=== PATIENT | female | born 1955 | race Caucasian/White ===

== ENCOUNTER 2016-09-27 13:55 | Emergency (ER) | payer OTHER ==
[2016-09-27] MEDS ORDERED: DEXAMETHASONE 4 MG TABLET PO ONE (14:55)
--- NOTE | 2016-09-27 14:59 | ER Document Report ---
HPI - HPI Patient complains to provider of: skin rash Onset: Last week Onset/Duration: Worse Quality of pain: Burning Pain Level: 5 Context: Patient complains of pruritic skin rash to trunk and extremities. Patient saw her lime boiler 2 days ago was diagnosed with scabies and given cream to treat this. Patient states that she has since developed a rash around her ileostomy appliance and is concerned that she may have scabies underneath the appliance and that she cannot put the cream on her abdomen due to and affecting the adhesive capabilities of her ostomy appliance. Patient denies any improvement of pruritus with use of [id number] Benadryl. Patient denies any other new medications or recent illness. Patient states she was working in her yard 4 days ago but is insistent that she did not come in contact with any kind of poison anthony. Associated Symptoms: Other - Skin rash. denies: Fever Exacerbated by: Denies Relieved by: Denies Similar symptoms previously: No Recently seen / treated by doctor: Yes - ROS ROS below otherwise negative: Yes Systems Reviewed and Negative: Yes All other systems reviewed and negative - CONSTITUTIONAL Constitutional: DENIES: Fever, Chills - NEURO Neurology: DENIES: Headache - RESPIRATORY Respiratory: DENIES: Trouble Breathing, Coughing - REPRODUCTIVE Reproductive: DENIES: : - DERM Skin Color: Erythema Skin Problems: Rash Past Medical History - General Information source: Patient - Social History Smoking Status: Never Smoker Frequency of alcohol use: None Drug Abuse: None Occupation: none Family History: Reviewed & Not Pertinent Patient has suicidal ideation: No Patient has homicidal ideation: No - Past Medical History Cardiac Medical History: Denies: Hx Coronary Artery Disease, Hx Heart Attack, Hx Hypertension Pulmonary Medical History: Reports: Hx Pneumonia - in past Denies: Hx Asthma, Hx Bronchitis, Hx COPD Neurological Medical History: Denies: Hx Cerebrovascular Accident, Hx Seizures Renal/ Medical History: Denies: Hx Peritoneal Dialysis Malignancy Medical History: Reports: Hx Breast Cancer - prothesis on left, Hx Colorectal Cancer GI Medical History: Reports: Hx Ulcerative Colitis Musculoskeltal Medical History: Reports Hx Arthritis - knees/l foot Psychiatric Medical History: Reports: Hx Anxiety Past Surgical History: Reports: Hx Breast Surgery - right areola, Hx Genitourinary Surgery - bladder tuck, Hx Hysterectomy, Hx Mastectomy - left breast, Hx Neurologic Surgery, Hx Tubal Ligation, Hx Urinary Tract Surgery - bladder. Denies: Hx Pacemaker - Immunizations Immunizations up to date: Yes Hx Diphtheria, Pertussis, Tetanus Vaccination: No Vertical Provider Document - CONSTITUTIONAL Agree With Documented VS: Yes Exam Limitations: No Limitations General Appearance: WD/WN, No Apparent Distress - INFECTION CONTROL TRAVEL OUTSIDE OF THE [place] IN LAST 30 DAYS: No - HEENT HEENT: Atraumatic, Normocephalic - NECK Neck: Normal Inspection - RESPIRATORY Respiratory: Breath Sounds Normal, No Respiratory Distress O2 Sat by Pulse Oximetry: 97 - CARDIOVASCULAR Cardiovascular: Regular Rate, Regular Rhythm - GI/ABDOMEN Gastrointestinal: Abdomen Soft - MUSCULOSKELETAL/EXTREMETIES Musculoskeletal/Extremeties: MAEW - NEURO Level of Consciousness: Awake, Alert, Appropriate Motor/Sensory: No Motor Deficit - DERM Integumentary: Warm, Dry, Rash - Erythematous maculopapular rash confluent areas to trunk with scattered areas with a vesicular type appearance concerning for a contact dermatitis. Course - Re-evaluation Re-evalutation: 09/27/16 14:[address] Emerson, Dr Emerson to bedside for examination. Recommends giving patient a dose of Decadron and a prescription for Atarax to help with her itching symptoms. Advises follow-up with dermatology on Thursday for recheck. - Vital Signs Vital signs: Temp Pulse Resp BP Pulse Ox 98.7 F 89 20 134/83 H 97 09/27/16 14:00 09/27/16 14:00 09/27/16 14:00 09/27/16 14:00 09/27/16 14:00 Discharge - Discharge Clinical Impression: Skin rash Condition: Stable Disposition: HOME, SELF-CARE Instructions: Contact Dermatitis ([facility]), Steroid Medication Additional Instructions: Return immediately for any new or worsening symptoms Followup with your primary care provider, call tomorrow to make a followup appointment Follow up with your lime boiler on Thursday for recheck Do not take Benadryl,if you are taking Atarax, as these are similar category of medication. Prescriptions: Hydroxyzine HCl [Atarax 25 mg Tablet] 1 tab PO QID PRN #20 tablet PRN Reason: Referrals: VANESSA WEIR PA [NO LOCAL MD] - 09/29/16
[2016-09-27 20:45] VITALS: BP 112/81
== END 2016-09-27 19:19 | disposition home or self-care (01) ==
LOC: ER 13:55
DX: R21 Rash and other nonspecific skin eruption (principal)
CPT/HCPCS: 99282

== ENCOUNTER → 2016-10-21 | Outpatient (CLI) | payer OTHER ==
--- NOTE | 2016-10-21 15:59 | RADIOLOGY REPORT (SQ) ---
EXAM DESCRIPTION: MRI HEAD COMBO COMPLETED DATE/TIME: 10/21/2016 3:40 pm REASON FOR STUDY: HEADACHE (R51), DIZZINESS AND GIDDINESS (R42), BREAST CA (C50.912) R51 HEADACHE R 42 DIZZINESS AND GIDDINESS C50.912 MALIGNANT NEOPLASM OF UNSPECIFIED SITE OF LEFT FEMAL COMPARISON: None. TECHNIQUE: Multiplanar imaging includes noncontrasted T1, T2, FLAIR, diffusion with ADC map and post gadolinium contrast T1 sequences. Images stored on PACS. CONTRAST TYPE AND DOSE: 20 mL Multihance. RENAL FUNCTION: GFR > 60. LIMITATIONS: None. FINDINGS: CSF SPACES and CEREBRUM: Patient is post right temporal craniotomy. In the right middle cranial fossa, the choroidal fissure region arachnoid cyst is present measuring 4 .2 cm transverse by 3.3 cm craniocaudad by 5.4 cm AP. There is minimal gliosis on FLAIR images along the posterior edge of this cyst. No contrast enhancement or septations. There is right anterior te mporal lobe atrophy. No mass effect or midline shift. POSTERIOR FOSSA: No signal alteration. No hemorrhage. No edema, masses, or mass effect. Internal mina tory canals, cerebellopontine angles, mastoids normal. No enhancing lesions. No abnormal enhancement post contrast. DIFFUSION IMAGING: Negative for acute or subacute infarction. ORBITS: No masses. Globes normal. PARANASAL SINUSES: There is mucous membrane thickening and fluid in the dependent portion of the sphe noid sinus. Circumferential mucous membrane thickening with minimal fluid left maxillary sinus. OTHER: No other significant finding. IMPRESSION: Old right temporal craniotomy with right-sided choroidal fissure arachnoid cyst. Minima l temporal lobe gliosis along the posterior edge of this cyst. No abnormal brain parenchymal enhance ment, hemorrhage, or midline shift. No MR evidence of acute ischemic change Left maxillary and left sphenoid sinusitis TECHNICAL DOCUMENTATION: JOB ID: [id number] [employer]- All Rights Reserved
== END ==
LOC: RAD 13:34
PROVIDERS: ATTEND Internal Medicine Medical Oncology
DX: R51 Headache (principal); R42 Dizziness and giddiness; C50.912 Malignant neoplasm of unspecified site of left female breast; J32.0 Chronic maxillary sinusitis
CPT/HCPCS: 82565; 70553; A9577

== ENCOUNTER 2016-12-01 19:41 | Emergency (ER) | payer OTHER ==
[2016-12-01 19:55] VITALS: BP 148/101
--- NOTE | 2016-12-01 21:57 | ER Document Report ---
ED ENT - General Chief Complaint: Sore Throat Stated Complaint: SORE THROAT/NOSE BURNING Time Seen by Provider: 12/01/16 21:40 TRAVEL OUTSIDE OF THE [place]. IN LAST 30 DAYS: No - Related Data Allergies/Adverse Reactions: carbamazepine [From Tegretol] Allergy (Mild, Verified 09/27/16 13:59) Generalized Itching Penicillins Allergy (Mild, Verified 09/27/16 13:59) Generalized Itching Past Medical History - Social History Family History: Reviewed & Not Pertinent Patient has suicidal ideation: No Patient has homicidal ideation: No - Past Medical History Cardiac Medical History: Denies: Hx Coronary Artery Disease, Hx Heart Attack, Hx Hypertension Pulmonary Medical History: Reports: Hx Pneumonia - in past Denies: Hx Asthma, Hx Bronchitis, Hx COPD Neurological Medical History: Denies: Hx Cerebrovascular Accident, Hx Seizures Renal/ Medical History: Denies: Hx Peritoneal Dialysis Malignancy Medical History: Reports: Hx Breast Cancer - prothesis on left, Hx Colorectal Cancer GI Medical History: Reports: Hx Ulcerative Colitis Musculoskeltal Medical History: Reports Hx Arthritis - knees/l foot Psychiatric Medical History: Reports: Hx Anxiety Past Surgical History: Reports: Hx Breast Surgery - right areola, Hx Genitourinary Surgery - bladder tuck, Hx Hysterectomy, Hx Mastectomy - left breast, Hx Neurologic Surgery, Hx Tubal Ligation, Hx Urinary Tract Surgery - bladder. Denies: Hx Pacemaker - Immunizations Immunizations up to date: Yes Hx Diphtheria, Pertussis, Tetanus Vaccination: No Physical Exam - Vital signs Vitals: Temp Pulse Resp BP Pulse Ox 98.1 F 109 H 18 148/101 H 95 12/01/16 19:52 12/01/16 19:52 12/01/16 19:52 12/01/16 19:52 12/01/16 19:52 Course - Vital Signs Vital signs: Temp Pulse Resp BP Pulse Ox 98.1 F 109 H 18 148/101 H 95 12/01/16 19:52 12/01/16 19:52 12/01/16 19:52 12/01/16 19:52 12/01/16 19:52 Discharge - Discharge Clinical Impression: URI (upper respiratory infection) Condition: Stable Disposition: HOME, SELF-CARE Instructions: Family Physicians / Practices, Hay Fever ([facility]), Sinusitis ([facility]) Prescriptions: Azithromycin [Zithromax 250 mg Tablet] 250 mg PO ASDIR PRN #6 tablet PRN Reason: Methylprednisolone [Medrol Dosepack (4 mg/Tab) 21 Tab/Dosepak] 4 mg PO ASDIR PRN #21 tab.ds.pk PRN Reason:
--- NOTE | 2016-12-01 22:50 | ER Document Report ---
ED ENT - General Mode of Arrival: Ambulatory Information source: Patient TRAVEL OUTSIDE OF THE [place] IN LAST 30 DAYS: No <DARYA RAMOS - Last Filed: 12/02/16 00:52> <GARLAND CONRAD - Last Filed: 12/02/16 01:07> - General Chief Complaint: Sore Throat Stated Complaint: SORE THROAT/NOSE BURNING Time Seen by Provider: 12/01/16 21:40 Notes: Patient is a 61-year-old female that presents to the emergency department today with various complaints including ear pain, throat pain, a cough, and nose "burning". Patient states 2-3 weeks ago she was diagnosed with a sinus infection and has had these symptoms pretty consistently since that time. Patient states she has tried Benadryl, saltwater gargles, and nasal rinses with minimal relief. (DARYA RAMOS) - Related Data Allergies/Adverse Reactions: carbamazepine [From Tegretol] Allergy (Mild, Verified 12/01/16 21:57) Generalized Itching Penicillins Allergy (Mild, Verified 12/01/16 21:57) Generalized Itching Past Medical History - General Information source: Patient - Social History Smoking Status: Unknown if Ever Smoked Frequency of alcohol use: None Drug Abuse: None Lives with: Family Family History: Reviewed & Not Pertinent Patient has suicidal ideation: No Patient has homicidal ideation: No Pulmonary Medical History: Reports: Hx Pneumonia - in past Malignancy Medical History: Reports: Hx Breast Cancer - prothesis on left, Hx Colorectal Cancer GI Medical History: Reports: Hx Ulcerative Colitis Musculoskeltal Medical History: Reports Hx Arthritis - knees/l foot Psychiatric Medical History: Reports: Hx Anxiety Past Surgical History: Reports: Hx Breast Surgery - right areola, Hx Genitourinary Surgery - bladder tuck, Hx Hysterectomy, Hx Mastectomy - left breast, Hx Neurologic Surgery, Hx Tubal Ligation, Hx Urinary Tract Surgery - bladder. Denies: Hx Pacemaker - Immunizations Immunizations up to date: Yes Hx Diphtheria, Pertussis, Tetanus Vaccination: No <DARYA RAMOS - Last Filed: 12/02/16 00:52> Review of Systems - Review of Systems Constitutional: No symptoms reported EENT: See HPI, Ear pain, Throat pain, Other - nose burning Cardiovascular: No symptoms reported Respiratory: See HPI, Cough Gastrointestinal: No symptoms reported Genitourinary: No symptoms reported Female Genitourinary: No symptoms reported Musculoskeletal: No symptoms reported Skin: No symptoms reported Hematologic/Lymphatic: No symptoms reported Neurological/Psychological: No symptoms reported -: Yes All other systems reviewed and negative <DARYA RAMOS - Last Filed: 12/02/16 00:52> Physical Exam - Vital signs Interpretation: Normal - General General appearance: Appears well, Alert - HEENT Head: Normocephalic, Atraumatic Eyes: Normal Pupils: PERRL - Respiratory Respiratory status: No respiratory distress Chest status: Nontender Breath sounds: Normal Chest palpation: Normal - Cardiovascular Rhythm: Regular Heart sounds: Normal auscultation Murmur: No - Abdominal Inspection: Normal Distension: No distension Bowel sounds: Normal Tenderness: Nontender Organomegaly: No organomegaly - Back Back: Normal, Nontender - Extremities General upper extremity: Normal inspection, Nontender, Normal color, Normal ROM , Normal temperature General lower extremity: Normal inspection, Nontender, Normal color, Normal ROM , Normal temperature, Normal weight bearing. No: Zuly's sign - Neurological Neuro grossly intact: Yes Cognition: Normal Orientation: AAOx4 Tracie Coma Scale Eye Opening: Spontaneous Gillespie Coma Scale Verbal: Oriented Gillespie Coma Scale Motor: Obeys Commands Tracie Coma Scale Total: 15 Speech: Normal Motor strength normal: LUE, RUE, LLE, RLE Sensory: Normal - Psychological Associated symptoms: Normal affect, Normal mood - Skin Skin Temperature: Warm Skin Moisture: Dry Skin Color: Normal <GARLAND CONRAD - Last Filed: 12/02/16 01:07> - Vital signs Vitals: Temp Pulse Resp BP Pulse Ox 98.1 F 109 H 18 148/101 H 95 12/01/16 19:52 12/01/16 19:52 12/01/16 19:52 12/01/16 19:52 12/01/16 19:52 Course <DARYA RAMOS - Last Filed: 12/02/16 00:52> <GARLAND CONRAD Last Filed: 12/02/16 01:07> - Re-evaluation Re-evalutation: Patient appears well. Patient is complaining of upper respiratory symptoms versus rhinitis. Patient will be given steroids and antibiotics as requested. She is to follow-up with a primary doctor. Stable for discharge. (GARLAND CONRAD) - Vital Signs Vital signs: Temp Pulse Resp BP Pulse Ox 98.1 F 109 H 18 148/101 H 95 12/01/16 19:52 12/01/16 19:52 12/01/16 19:52 12/01/16 19:52 12/01/16 19:52 Discharge <DARYA RAMOS - Last Filed: 12/02/16 00:52> <GARLAND CONRAD - Last Filed: 12/02/16 01:07> - Discharge Clinical Impression: URI (upper respiratory infection) Qualifiers: URI type: unspecified URI Qualified Code(s): J06.9 - Acute upper respiratory infection, unspecified Condition: Stable Disposition: HOME, SELF-CARE Instructions: Family Physicians / Practices, Hay Fever ([facility]), Sinusitis ([facility]) Prescriptions: Azithromycin [Zithromax 250 mg Tablet] 250 mg PO ASDIR PRN #6 tablet PRN Reason: Methylprednisolone [Medrol Dosepack (4 mg/Tab) 21 Tab/Dosepak] 4 mg PO ASDIR PRN #21 tab.ds.pk PRN Reason: Scribe Attestation: 12/02/16 01:06 I personally performed the services described in the documentation, reviewed and edited the documentation which was dictated to the scribe in my presence, and it accurately records my words and actions. (GARLAND CONRAD) Scribe Documentation - Scribe Written by Elia:: Elia Pandya, 12/02/2016 0055 acting as scribe for :: Omar <DARYA RAMOS - Last Filed: 12/02/16 00:52>
== END 2016-12-01 21:59 | disposition home or self-care (01) ==
LOC: ER 19:41
DX: J06.9 Acute upper respiratory infection, unspecified (principal); Z90.710 Acquired absence of both cervix and uterus; Z90.12 Acquired absence of left breast and nipple; Z88.0 Allergy status to penicillin
CPT/HCPCS: 99282

== ENCOUNTER 2018-02-23 19:56 | Emergency (ER) | payer OTHER ==
[2018-02-23] MEDS ORDERED: ACETAMINOPHEN 325 MG TABLET PO ONE (22:09)
--- NOTE | 2018-02-23 22:40 | RADIOLOGY REPORT (SQ) ---
EXAM DESCRIPTION: XR FOOT 3 OR MORE VIEWS BILATERAL COMPLETED DATE/TME: 02/23/2018 00:00 CLINICAL HISTORY: 62 years Female, Foot pain s/p injury. Tripped over debris in house COMPARISON: 4.3.15 Findings: Mild primary osteoarthritis includes the first metatarsophalangeal joint bilaterally, plantar fascial enthesophyte, moderate osteoarthritis of the midfoot, small soft tissue bunionette bilaterally.. Bones, joints, and soft tissues of the bilateral XR FOOT 3 VIEWS BILATERAL appear otherwise intact. IMPRESSION: No acute findings.
[2018-02-23] MEDS ORDERED: HYDROCODONE/ACETAMINOPHEN 5-325 MG (6 TAB/ER DISP) PO PRN (22:45)
--- NOTE | 2018-02-23 22:48 | ER Document Report ---
HPI - HPI Patient complains to provider of: Bilateral foot pain Onset: This evening Onset/Duration: Sudden Quality of pain: Achy Pain Level: 5 Context: Patient states that she was cleaning up her house and tripped over a fan injuring her bilateral feet. Patient complains of bilateral foot pain. Associated Symptoms: Other - Bilateral foot pain Exacerbated by: Standing, Movement, Walking Relieved by: Denies Similar symptoms previously: No Recently seen / treated by doctor: No - ROS ROS below otherwise negative: Yes Systems Reviewed and Negative: Yes All other systems reviewed and negative - CONSTITUTIONAL Constitutional: DENIES: Fever - NEURO Neurology: DENIES: Headache, Weakness - GASTROINTESTINAL Gastrointestinal: DENIES: Nausea - REPRODUCTIVE Reproductive: DENIES: : - MUSCULOSKELETAL Musculoskeletal: REPORTS: Extremity pain - DERM Skin Color: Normal Skin Problems: None Past Medical History - General Information source: Patient - Social History Smoking Status: Never Smoker Frequency of alcohol use: None Drug Abuse: None Family History: Reviewed & Not Pertinent - Past Medical History Cardiac Medical History: Denies: Hx Coronary Artery Disease, Hx Heart Attack, Hx Hypertension Pulmonary Medical History: Reports: Hx Pneumonia - in past Denies: Hx Asthma, Hx Bronchitis, Hx COPD Neurological Medical History: Reports: Hx Seizures. Denies: Hx Cerebrovascular Accident Renal/ Medical History: Denies: Hx Peritoneal Dialysis Malignancy Medical History: Reports: Hx Breast Cancer - prothesis on left, Hx Colorectal Cancer GI Medical History: Reports: Hx Ulcerative Colitis Musculoskeletal Medical History: Reports Hx Arthritis - knees/l foot Psychiatric Medical History: Reports: Hx Anxiety Past Surgical History: Reports: Hx Breast Surgery - right areola, Hx Genitourinary Surgery - bladder tuck, Hx Hysterectomy, Hx Mastectomy - left breast, Hx Neurologic Surgery, Hx Tubal Ligation, Hx Urinary Tract Surgery - bladder. Denies: Hx Pacemaker - Immunizations Immunizations up to date: Yes Hx Diphtheria, Pertussis, Tetanus Vaccination: No Vertical Provider Document - CONSTITUTIONAL Agree With Documented VS: Yes Exam Limitations: No Limitations General Appearance: WD/WN, No Apparent Distress - INFECTION CONTROL TRAVEL OUTSIDE OF THE [place] IN LAST 30 DAYS: No - HEENT HEENT: Atraumatic, Normocephalic - NECK Neck: Normal Inspection - RESPIRATORY Respiratory: Breath Sounds Normal, No Respiratory Distress - CARDIOVASCULAR Cardiovascular: Regular Rate, Regular Rhythm Pulses: Normal: Dorsalis pedis - MUSCULOSKELETAL/EXTREMETIES Musculoskeletal/Extremeties: MAEW, FROM, Tender - Patient with bilateral foot tenderness, right worse than left. Notes: Right foot tenderness over midfoot area with 1+ edema, no ecchymosis. Dermal skin color and temperature. Left foot tenderness to distal first through third metatarsal and first through third toes. No ecchymosis edema or deformity. - NEURO Level of Consciousness: Awake, Alert, Appropriate Motor/Sensory: No Motor Deficit - DERM Integumentary: Warm, Dry, No Rash Course - Re-evaluation Re-evalutation: 02/23/18 22:47 X-ray report reviewed, no concern for fracture. Patient with arthritic findings to bilateral feet. - Vital Signs Vital signs: Temp Pulse Resp BP Pulse Ox 98.6 F 79 16 139/87 H 97 02/23/18 20:07 02/23/18 20:07 02/23/18 20:07 02/23/18 20:07 02/23/18 20:07 Procedures - Immobilization Left Foot Pre-Proc Neuro Vasc Exam: Normal Immobilizer type: Post-op shoe Performed by: PCT Post-Proc Neuro Vasc Exam: Normal Alignment checked and good: Yes Right Foot Pre-Proc Neuro Vasc Exam: Normal Immobilizer type: Post-op shoe Performed by: PCT Post-Proc Neuro Vasc Exam: Normal Alignment checked and good: Yes Discharge - Discharge Clinical Impression: Arthritis Foot sprain Qualifiers: Encounter type: initial encounter Laterality: unspecified laterality Qualified Code(s): S93.609A - Unspecified sprain of unspecified foot, initial encounter Condition: Stable Disposition: HOME, SELF-CARE Instructions: Arthritis ([facility]), Post-Op Shoe ([facility]), Sprain ([facility]) Additional Instructions: Return immediately for any new or worsening symptoms Followup with your primary care provider, call tomorrow to make a followup appointment Follow-up with orthopedics for any persistent pain or problems, call for follow- up Prescriptions: Naproxen [Naprosyn 250 Nmg Tablet] 1 tab PO BID #14 tablet Referrals: [facility]LE[facility] FOR SURGERY ([facility]) [Provider Group] - Follow up as needed
[2018-02-23 23:01] VITALS: BP 140/82
[2018-02-23] MEDS ORDERED: HYDROCODONE/ACETAMINOPHEN 5-325 MG (6 TAB/ER DISP) ONE (23:30)
== END 2018-02-23 22:58 | disposition home or self-care (01) ==
LOC: ER 19:56
DX: S93.609A Unspecified sprain of unspecified foot, initial encounter (principal); X58.XXXA Exposure to other specified factors, initial encounter; Y93.E9 Activity, other interior property and clothing maintenance; Y92.009 Unspecified place in unspecified non-institutional (private) residence as the place of occurrence of the external cause; M19.072 Primary osteoarthritis, left ankle and foot; M19.071 Primary osteoarthritis, right ankle and foot; M79.671 Pain in right foot; M79.672 Pain in left foot; R60.0 Localized edema; Z85.3 Personal history of malignant neoplasm of breast; Z85.048 Personal history of other malignant neoplasm of rectum, rectosigmoid junction, and anus
CPT/HCPCS: 99283

== ENCOUNTER → 2018-05-23 | Outpatient (CLI) | payer OTHER ==
--- NOTE | 2018-05-24 14:56 | RADIOLOGY REPORT (SQ) ---
EXAM DESCRIPTION: PET CT SKULL/THIGH COMPLETED DATE/TIME: 05/23/2018 8:10 pm REASON FOR STUDY: BREAST CANCER C50.919 MALIGNANT NEOPLASM OF UNSP SITE OF UNSPECIFIED FEMAL Colon cancer COMPARISON: None. RADIONUCLIDE AND DOSE: 9 mCi F18 FDG The route of agent administration: Intravenous FASTING BLOOD SUGAR: 93 mg/dl CONTRAST TYPE AND DOSE: No CT contrast given. TECHNIQUE: Blood glucose level was verified. Above dose of FDG was injected intravenously. 2-D seg mented attenuation correction images were obtained from the base of the skull to the midthighs. Nonc ontrast CT images were obtained for attenuation correction and fusion with emission images. CT image s were performed without oral or intravenous contrast and are not sensitive for parenchymal lesions. A series of overlapping emission PET images were obtained. Images reviewed and manipulated at [facility] work station by the radiologist. Images stored on PACS. LIMITATIONS: None. FINDINGS: HEAD AND NECK: No areas of abnormal metabolic activity in the soft tissues of the head and neck. CHEST: No areas of abnormal metabolic activity in the chest. ABDOMEN AND PELVIS: No areas of abnormal metabolic activity in the abdomen or pelvis. Expected physi ologic activity is present in the genitourinary system and bowel. PROXIMAL LOWER EXTREMITIES: No areas of abnormal metabolic activity in the soft tissues of the lower extremities. BONES: No abnormal metabolic activity in the visualized skeleton. ADDITIONAL CT FINDINGS: Right arm central line tip superior vena cava. Post bilateral mastectomy wit h right breast reconstruction without implant. Total colectomy with right lower quadrant ileostomy. Post appendectomy and hysterectomy. OTHER: Liver background activity 2.9 SUV. Blood pool background activity 1.9 SUV IMPRESSION: No hypermetabolic lesions over the skullbase neck chest abdomen or pelvis worrisome for metastatic disease, given history of breast cancer and colon cancer. TECHNICAL DOCUMENTATION: JOB ID: [id number] [employer]- All Rights Reserved Reading location - IP/workstation name: [email or web address]
== END ==
LOC: RAD 16:48
PROVIDERS: ATTEND Internal Medicine Medical Oncology
DX: C50.919 Malignant neoplasm of unspecified site of unspecified female breast (principal); C18.2 Malignant neoplasm of ascending colon
CPT/HCPCS: 78815; A9552

== ENCOUNTER 2018-12-29 09:43 | Day surgery (SDC) | payer OTHER ==
[2018-12-29] MEDS ORDERED: LIDOCAINE 2% INJ-PF (100 MG/5 ML) SYRINGE ONE (12:28)
[2018-12-29] MEDS ORDERED: PROPOFOL INJ 200 MG/20 ML VIAL IV ONE (12:29)
[2018-12-29] MEDS ORDERED: PROMETHAZINE HCL INJ 25 MG/1 ML VIAL IV PRN ×2 (13:12)
[2018-12-29] MEDS ORDERED: FENTANYL CITRATE INJ/PF 100 MCG/2 ML AMPUL IV PRN ×3 (13:12)
[2018-12-29 14:22] VITALS: BP 135/97
--- NOTE | 2018-12-29 14:32 | Operative Report ---
Operative Report DATE OF SURGERY: 12/29/18 Operative Report: The risks benefits alternatives are explained to the patient in detail she is taken back to the OR and Propofol is administered. The scope is inserted into the patient's mouth and hypopharynx the esophagus is intubated the esophagus , stomach and duodenum are examined PREOPERATIVE DIAGNOSIS: epigastric pain POSTOPERATIVE DIAGNOSIS: gastritis s/p biopsy OPERATION: EGD with biopsy SURGEON: IRVIN MELCHOR ANESTHESIA: LMAC TISSUE REMOVED OR ALTERED: as noted COMPLICATIONS: none ESTIMATED BLOOD LOSS: none INTRAOPERATIVE FINDINGS: as noted above PROCEDURE: patient tolerated procedure well no post procedure complications patient is discharged in good condition discharge date: 12/29/18 discharge diet and activity are normal follow up on biopsy patient to go to ED if any concerns
== END 2018-12-29 14:20 | disposition home or self-care (01) ==
LOC: OROUT 09:43
PROVIDERS: ATTEND Internal Medicine Gastroenterology
DX: K29.50 Unspecified chronic gastritis without bleeding (principal); I10 Essential (primary) hypertension; Z85.3 Personal history of malignant neoplasm of breast; K21.9 Gastro-esophageal reflux disease without esophagitis; Z85.038 Personal history of other malignant neoplasm of large intestine; Z90.49 Acquired absence of other specified parts of digestive tract; Z80.0 Family history of malignant neoplasm of digestive organs
CPT/HCPCS: 43239; 88305 ×2; 00731; J2001; J2704; 731

== ENCOUNTER 2019-03-30 16:24 | Observation (INO) | payer OTHER ==
[2019-03-30] MEDS ORDERED: IBUPROFEN 800 MG TABLET PO ONE (16:34)
--- NOTE | 2019-03-30 16:37 | ER Document Report ---
ED Medical Screen (RME) - General Chief Complaint: Jaw Pain Stated Complaint: HEADACHE Time Seen by Provider: 03/30/19 16:29 Primary Care Provider: ARMAND HANSEN MD [Primary Care Provider] - Follow up as needed Mode of Arrival: Ambulatory Information source: Patient Notes: This 63-year-old female with history of cancers breast uterine colon, panic attacks, presents to the emergency department with a right sided jaw pain that started today. Patient denies nausea vomiting has a colonoscopy and this denies diarrhea. Denies chest pain reports she is always short of breath. Reports she had a normal EKG in the summer. Has not taken anything for the jaw pain. Denies dental pain. Reports she sees a dentist on a regular basis. I have greeted and performed a rapid initial assessment of this patient. A comprehensive ED assessment and evaluation of the patient, analysis of test results and completion of the medical decision making process will be conducted by additional ED providers. Dictation of this chart was performed using voice recognition software; therefore, there may be some unintended grammatical errors. TRAVEL OUTSIDE OF THE [place] IN LAST 30 DAYS: No - Related Data Allergies/Adverse Reactions: carbamazepine [From Tegretol] Allergy (Mild, Verified 12/01/16 21:57) Generalized Itching Penicillins Allergy (Mild, Verified 12/01/16 21:57) Generalized Itching Past Medical History - Past Medical History Cardiac Medical History: Denies: Hx Coronary Artery Disease, Hx Heart Attack, Hx Hypertension Pulmonary Medical History: Reports: Hx Pneumonia - in past Denies: Hx Asthma, Hx Bronchitis, Hx COPD Neurological Medical History: Reports: Hx Seizures - NONE SINCE 1995 . Denies: Hx Cerebrovascular Accident Renal/ Medical History: Denies: Hx Peritoneal Dialysis Malignancy Medical History: Reports: Hx Breast Cancer - prothesis on left, Hx Colorectal Cancer GI Medical History: Reports: Hx Ulcerative Colitis Musculoskeltal Medical History: Reports Hx Arthritis - knees/l foot Psychiatric Medical History: Reports: Hx Anxiety Past Surgical History: Reports: Hx Breast Surgery - right areola, Hx Genitourinary Surgery - bladder tuck, Hx Hysterectomy, Hx Mastectomy - left breast, Hx Neurologic Surgery, Hx Tubal Ligation, Hx Urinary Tract Surgery - bladder. Denies: Hx Pacemaker - Immunizations Immunizations up to date: Yes Hx Diphtheria, Pertussis, Tetanus Vaccination: No Physical Exam - Vital signs Vitals: Temp Pulse Resp BP Pulse Ox 98.0 F 93 20 151/94 H 99 03/30/19 16:28 03/30/19 16:28 03/30/19 16:28 03/30/19 16:28 03/30/19 16:28 Course - Vital Signs Vital signs: Temp Pulse Resp BP Pulse Ox 98.0 F 93 20 151/94 H 99 03/30/19 16:28 03/30/19 16:28 03/30/19 16:28 03/30/19 16:28 03/30/19 16:28 Doctor's Discharge - Discharge Referrals: ARMAND HANSEN MD [Primary Care Provider] - Follow up as needed
[2019-03-30 17:31] LABS: ABSOLUTE BASOPHILS # (AUTO) 0.1 10^3/uL (0.0-0.2); ABSOLUTE LYMPHOCYTES (AUTO) 1.8 10^3/uL (0.5-4.7); ABSOLUTE MONOCYTES (AUTO) 0.7 10^3/uL (0.1-1.4); ABSOLUTE NEUT (AUTO) 5.6 10^3/uL (1.7-8.2); BASOPHILS % (AUTO) 1.3 % (0-2); EOSINOPHILS % (AUTO) 0.4 % (0-6); HEMOGLOBIN 15.1 g/dL (12.0-15.5); LYMPHOCYTES % (AUTO) 21.5 % (13-45); MEAN CORPUSCULAR HEMOGLOBIN 29.8 pg (27.0-33.4); MEAN CORPUSCULAR HGB CONC 34.2 g/dL (32.0-36.0); MEAN CORPUSCULAR VOLUME 87 fl (80-97); PLATELET COUNT 264 10^3/uL (150-450); RED BLOOD COUNT 5.05 10^6/uL (3.72-5.28); RED CELL DISTRIBUTION WIDTH 12.5 % (11.5-14.0); SEGMENTED NEUTROPHILS % (AUTO) 67.8 % (42-78); TOTAL CELLS COUNTED % (AUTO) 100 %; WHITE BLOOD COUNT 8.3 10^3/uL (4.0-10.5)
[2019-03-30 17:40] LABS: ALBUMIN 4.7 g/dL (3.5-5.0); ALKALINE PHOSPHATASE 94 U/L (38-126); ANION GAP 13 (5-19); ASPARTATE AMINO TRANSFERASE 22 U/L (14-36); BILIRUBIN,DIRECT 0.1 mg/dL (0.0-0.4); BILIRUBIN,TOTAL 0.6 mg/dL (0.2-1.3); BLOOD UREA NITROGEN 14 mg/dL (7-20); CALCIUM 10.2 mg/dL (8.4-10.2); CARBON DIOXIDE 22 mmol/L (22-30); CHLORIDE 105 mmol/L (98-107); GLUCOSE 101 mg/dL (75-110); POTASSIUM 4.1 mmol/L (3.6-5.0); TOTAL PROTEIN 8.3 g/dL (6.3-8.2)
--- NOTE | 2019-03-30 19:19 | ER Document Report ---
ED General - General Chief Complaint: Jaw Pain Stated Complaint: HEADACHE Time Seen by Provider: 03/30/19 16:29 Primary Care Provider: ARMAND HANSEN MD [Primary Care Provider] - Follow up as needed Mode of Arrival: Ambulatory TRAVEL OUTSIDE OF THE [place] IN LAST 30 DAYS: No - HPI Notes: Patient is a 63-year-old female with history of seizures, ulcerative colitis, breast cancer status post mastectomy, colon cancer s/p ileostomy, brain cancer status post right temporal lobectomy more than 4 years ago and currently in remission who presents complaining of having right-sided jaw pain and tightness that has been intermittent beginning this afternoon. Patient states that the last for a few minutes approximately a time. Pt states that she is unaware of anything that improves or worsens her symptoms. She has been having occasional SOB with exertion for several months otherwise. No h/o PA, CAD, CVA, TIA, DM. Denies any headache, red eye, fever, injury, neck pain, changes in vision/speech/mentation/hearing, URI, sore throat, chest pain, palpitations, syncope, cough, wheeze, abdominal pain, nausea/vomiting/diarrhea, urinary retention, dysuria, hematuria, loss of control of bowel or bladder, numbness/tingling, saddle anesthesia, muscle paralysis/weakness, or rash. - Related Data Allergies/Adverse Reactions: carbamazepine [From Tegretol] Allergy (Mild, Verified 12/01/16 21:57) Generalized Itching Penicillins Allergy (Mild, Verified 12/01/16 21:57) Generalized Itching Home Medications: zoloft. melatonin. benadryl Past Medical History - General Information source: Patient - Social History Smoking Status: Never Smoker Chew tobacco use (# tins/day): No Frequency of alcohol use: None Drug Abuse: None Family History: Reviewed & Not Pertinent Patient has suicidal ideation: No Patient has homicidal ideation: No - Past Medical History Cardiac Medical History: Denies: Hx Coronary Artery Disease, Hx Heart Attack, Hx Hypertension Pulmonary Medical History: Reports: Hx Pneumonia - in past Denies: Hx Asthma, Hx Bronchitis, Hx COPD Neurological Medical History: Reports: Hx Seizures - NONE SINCE 1995 . Denies: Hx Cerebrovascular Accident Renal/ Medical History: Denies: Hx Peritoneal Dialysis Malignancy Medical History: Reports: Hx Breast Cancer - prothesis on left, Hx C olorectal Cancer GI Medical History: Reports: Hx Ulcerative Colitis Musculoskeletal Medical History: Reports Hx Arthritis - knees/l foot Psychiatric Medical History: Reports: Hx Anxiety Past Surgical History: Reports: Hx Breast Surgery - right areola, Hx Genitourinary Surgery - bladder tuck, Hx Hysterectomy, Hx Mastectomy - left breast, Hx Neurologic Surgery, Hx Tubal Ligation, Hx Urinary Tract Surgery - bladder. Denies: Hx Pacemaker - Immunizations Immunizations up to date: Yes Hx Diphtheria, Pertussis, Tetanus Vaccination: No Review of Systems - Review of Systems -: Yes All other systems reviewed and negative Physical Exam - Vital signs Vitals: Temp Pulse Resp BP Pulse Ox 98.0 F 93 20 151/94 H 99 03/30/19 16:28 03/30/19 16:28 03/30/19 16:28 03/30/19 16:28 03/30/19 16:28 - Notes Notes: PHYSICAL EXAMINATION: GENERAL: Well-appearing, well-nourished and in no acute distress. A&Ox4. Answers questions appropriately. HEAD: Atraumatic, normocephalic. Non-tender. EYES: Pupils equal round and reactive to light, extraocular movements intact, sclera anicteric, conjunctiva are normal. No nystagmus. vis lopez intact. ENT: EAC clear b/l. TM's intact b/l without erythema, fluid, or perforation. Nares patent and without discharge. oropharynx clear without exudates. No tonsilar hypertrophy or erythema. Moist mucous membranes. Mouth: no dental tenderness. No swelling or abscess. No bony tenderness to the jaw. No tongue protrusion. NECK: Normal range of motion, supple without lymphadenopathy. No rigidi ty/meningismus. No midline tenderness. LUNGS: Breath sounds clear to auscultation bilaterally and equal. No wheezes rales or rhonchi. HEART: Regular rate and rhythm without murmurs, rubs, gallops. ABDOMEN: Soft, nontender, nondistended abdomen. No guarding, no rebound. Normal bowel sounds present. No CVA tenderness bilaterally. Musculoskeletal: Ext b/l: FROM to passive/active. Strength 5+/5. No deficits noted. No bony tenderness of extremities. Extremities: No cyanosis, clubbing, or edema b/l. Peripheral pulses 2+. Capillary refill less than 2 seconds. NEUROLOGICAL: NIH 0. GCS 15. Cranial nerves grossly intact. Normal speech, normal gait. Normal sensory, motor exams. Reflexes 2+ b/l. ABILIO's negative. Pronator drift negative. Heel/gibbons, finger/nose wnl. PSYCH: Normal mood, normal affect. SKIN: Warm, Dry, normal turgor, no rashes or lesions noted. Course - Re-evaluation Re-evalutation: 03/30/19 19:[address] Rodriguez who recommends CP obs/rule out. Patient is an afebrile, well-hydrated, 63-year-old female who presents with nonspecific intermittent right jaw pain. Vitals are currently acceptable without significant tachycardia, tachypnea, or hypoxia. PE is otherwise unremarkable. NIH 0, GCS 15, cranial is grossly intact. Patient is currently asymptomatic. Labs are unremarkable including initial troponin. I did call and speak with our hospitalist, Dr. Nick, who accepted patient for admission. - Vital Signs Vital signs: Temp Pulse Resp BP Pulse Ox 98.0 F 93 13 134/83 H 99 03/30/19 16:28 03/30/19 16:28 03/30/19 18:21 03/30/19 18:21 03/30/19 18:21 - Laboratory Result Diagrams: 03/30/19 17:01 03/30/19 16:51 Laboratory results interpreted by me: 03/30/19 16:51 Total Protein 8.3 H Discharge - Discharge Clinical Impression: Jaw pain Condition: Stable Disposition: ADMITTED OBSERVATION Admitting Provider: Park (Hospitalist) Unit Admitted: Telemetry Referrals: ARMAND HANSEN MD [Primary Care Provider] - Follow up as needed
[2019-03-30] MEDS ORDERED: HYDRALAZINE HCL INJ/PF 20 MG/1 ML SDV IV PRN (20:00)
[2019-03-30] MEDS ORDERED: MAGNESIUM HYDROXIDE SUSP 30 ML UDCUP PO PRN (20:00)
[2019-03-30] MEDS ORDERED: MAG HYDROX/AL HYDROX/SIMETH SUSP 30 ML UDCUP PO PRN (20:00)
[2019-03-30] MEDS ORDERED: MORPHINE SULFATE 10 MG/ML INJ IV PRN ×2 (20:00)
[2019-03-30] MEDS ORDERED: METOPROLOL TARTRATE PF/INJ 5 MG/5 ML SDV IV PRN (20:00)
[2019-03-30] MEDS ORDERED: ACETAMINOPHEN 325 MG TABLET PO PRN (20:00)
[2019-03-30] MEDS ORDERED: CLONAZEPAM 1 MG TABLET PO PRN (20:07)
[2019-03-30 21:10] LABS: TROPONIN I < 0.012 ng/mL
--- NOTE | 2019-03-30 23:31 | EKG REPORT ---
SEVERITY:- OTHERWISE NORMAL ECG - SINUS RHYTHM LEFT AXIS DEVIATION : Confirmed by: Marivel Melendez MD 30-Mar-2019 23:30:40
--- NOTE | 2019-03-31 01:05 | PDOC H&P ---
History of Present Illness Admission Date/PCP: 03/30/2019 19:33 ARMAND HANSEN MD Patient complains of: Jaw discomfort History of Present Illness: MELVIN CESAR is a 63 year old female who presented to the emergency room with acute jaw tightness/discomfort. She admits the sudden onset of inter mittent episodes of moderately intense right jaw aching/tightness lasting 1-2 minutes earlier in the afternoon of the date of admission. The jaw tightness does not radiate and has not been associated or accompanied by other symptoms. She denies prior similar episodes and has not identified any aggravating or ameliorating factors for her jaw pain. In the emergency room she was found to have initial cardiac enzymes and an EKG which revealed no evidence of myocardial ischemia or injury. She was subsequently admitted to observation status for further evaluation and treatment. Past Medical History Cardiac Medical History: Denies: Atrial Fibrillation, Coronary Artery Disease, Myocardial Infarction, Hypertension Pulmonary Medical History: Reports: Pneumonia Denies: Asthma, Bronchitis, Chronic Obstructive Pulmonary Disease (COPD) EENT Medical History: Reports: Cataracts Denies: Ears - Hearing aids Neurological Medical History: Reports: Seizures - Last seizure was in 1995 Denies: Hemorrhagic CVA, Ischemic CVA Endocrine Medical History: Reports: Obesity Denies: Diabetes Mellitus Type 1, Diabetes Mellitus Type 2, Hyperthyroidism, Hypothyroidism Renal/ Medical History: Denies: Chronic Kidney Disease, Nephrolithiasis Malignancy Medical History: Reports: Brain Cancer, Breast Cancer - prothesis on left, Colorectal Cancer GI Medical History: Reports: Ulcerative Colitis Denies: Cirrhosis, Hepatitis Musculoskeltal Medical History: Reports: Arthritis - knees/l foot Denies: Gout Skin Medical History: Denies: Eczema, Psoriasis Psychiatric Medical History: Reports: Other - Panic attacks Denies: Alcohol Dependency, Substance Abuse, Tobacco Dependency Traumatic Medical History: Reports: None Hematology: Denies: Anemia, Bleeding Tendencies Infectious Medical History: Reports: None Past Surgical History Past Surgical History: Reports: Hysterectomy, Ileostomy - Post colectomy, Mastectomy - left breast, with prosthesis, Tubal Ligation, Other - Right temporal lobectomy Social History Information Source: Patient Lives with: Alone Smoking Status: Never Smoker Electronic Cigarette use?: No Frequency of Alcohol Use: None Hx Recreational Drug Use: No Drugs: None Hx Prescription Drug Abuse: No - Advance Directive Resuscitation Status: Full Code Surrogate healthcare decision maker:: Jimena Mckoy Family History Family History: Arthritis, Malignancy. denies: CAD, DM, Hypertension Parental Family History Reviewed: Yes Children Family History Reviewed: No Sibling(s) Family History Reviewed.: Yes Medication/Allergy Home Medications: Alprazolam [Xanax 0.5 mg Tablet] 0.5 mg PO HSP PRN 03/30/19 Diphenhydramine HCl [Benadryl] 50 mg PO HSP PRN 03/30/19 Melatonin 10 mg PO HSP PRN 03/30/19 Sertraline HCl [Zoloft] 100 mg PO DAILY 03/30/19 Allergies/Adverse Reactions: carbamazepine [From Tegretol] Allergy (Mild, Verified 12/01/16 21:57) Generalized Itching Penicillins Allergy (Mild, Verified 12/01/16 21:57) Generalized Itching Review of Systems Constitutional: ABSENT: chills, fever(s) Eyes: ABSENT: visual disturbances, other - Eye pain Ears: ABSENT: hearing changes, other - Ear pain Nose, Mouth, and Throat: PRESENT: as per HPI, other - Right jaw pain. ABSENT: mouth pain, sore throat Cardiovascular: PRESENT: dyspnea on exertion - Chronic dyspnea on exertion. ABSENT: chest pain, palpitations Respiratory: PRESENT: dyspnea - Chronic dyspnea. ABSENT: cough Gastrointestinal: ABSENT: abdominal pain, constipation, diarrhea - Unchanged stool in ileostomy, nausea, vomiting Genitourinary: ABSENT: dysuria, hematuria Musculoskeletal: ABSENT: back pain, joint swelling, muscle weakness Integumentary: ABSENT: pruritus, rash Neurological: ABSENT: confusion, convulsions, focal weakness, memory loss, sy ncope Psychiatric: ABSENT: anxiety, depression Endocrine: ABSENT: cold intolerance, heat intolerance Hematologic/Lymphatic: ABSENT: easy bleeding, easy bruising Allergic/Immunologic: ABSENT: seasonal rhinorrhea Physical Exam Vital Signs: Temp Pulse Resp BP Pulse Ox 98.0 F 93 13 134/83 H 99 03/30/19 16:28 03/30/19 16:28 03/30/19 18:21 03/30/19 18:21 03/30/19 18:21 Intake & Output 03/28/19 03/29/19 03/30/19 23:59 23:59 23:59 Weight 109.7 kg General appearance: PRESENT: no acute distress, cooperative, obese Head exam: PRESENT: atraumatic, normocephalic Eye exam: PRESENT: conjunctiva pink. ABSENT: conjunctival injection, scleral icterus Ear exam: PRESENT: normal external ear exam. ABSENT: bleeding, drainage Mouth exam: PRESENT: neck supple. ABSENT: dry mucosa Neck exam: ABSENT: thyromegaly, tracheal deviation Respiratory exam: PRESENT: clear to auscultation daryn, symmetrical, unlabored Cardiovascular exam: PRESENT: RRR. ABSENT: clicks, gallop, rubs Pulses: PRESENT: normal radial pulses, normal dorsalis pedis pul Vascular exam: PRESENT: normal capillary refill. ABSENT: pallor GI/Abdominal exam: PRESENT: normal bowel sounds, soft, other - Ileostomy noted Rectal exam: PRESENT: deferred Extremities exam: ABSENT: joint swelling, pedal edema Musculoskeletal exam: ABSENT: deformity, dislocation Neurological exam: PRESENT: alert, oriented to person, oriented to place, oriented to time, oriented to situation, CN II-XII grossly intact. ABSENT: motor sensory deficit Psychiatric exam: PRESENT: appropriate affect, normal mood Skin exam: PRESENT: dry, intact, warm. ABSENT: jaundice, rash, urticaria Results Laboratory Results: 03/30/19 17:01 03/30/19 16:51 03/30/19 03/30/19 16:51 17:01 WBC 8.3 RBC 5.05 Hgb 15.1 Hct 44.0 MCV 87 MCH 29.8 MCHC 34.2 RDW 12.5 Plt Count 264 Seg Neutrophils % 67.8 Sodium 139.5 Potassium 4.1 Chloride 105 Carbon Dioxide 22 Anion Gap 13 BUN 14 Creatinine 0.80 Est GFR ( Amer) > 60 Glucose 101 Calcium 10.2 Total Bilirubin 0.6 AST 22 Alkaline Phosphatase 94 Total Protein 8.3 H Albumin 4.7 03/30/19 16:51 Troponin I < 0.012 Assessment and Plan - Diagnosis (1) Jaw pain Is this a current diagnosis for this admission?: Yes (2) Panic attacks Is this a current diagnosis for this admission?: Yes (3) Elevated blood pressure reading without diagnosis of hypertension Is this a current diagnosis for this admission?: Yes (4) Obesity (BMI 35.0-39.9 without comorbidity) Is this a current diagnosis for this admission?: Yes (5) History of left breast cancer Is this a current diagnosis for this admission?: Yes (6) History of brain cancer in adulthood Is this a current diagnosis for this admission?: Yes (7) Ileostomy present Is this a current diagnosis for this admission?: Yes - Plan Summary Summary: Patient is admitted to observation status on telemetry unit. Her cardiac enzymes will be repeated on a serial basis for evaluation of her right jaw pain. Her panic disorder will be treated with clonazepam 0.5 mg p.o. twice daily. Her blood pressure be monitored closely and treated with hydralazine 20 mg IV every 4 hours and/or metoprolol 5 mg IV every 4 hours as needed to maintain a sy stolic blood pressure less than 160 and/or a diastolic blood pressure less than 100. A drapery cutter machine consultation will be obtained to assist the patient in weight loss. Her pain will be treated with morphine sulfate 2 to 4 mg IV every 2 hours on an as-needed basis using a sliding scale. A cardiac stress test will be scheduled for the morning if her cardiac enzymes remain negative for acute cardiac injury or ischemia. She will receive the usual supportive and symptomatic care throughout her hospital course. She will receive ileostomy care as needed. She will also have routine screenings of her TSH and lipid profile. - Time Time Spent with patient: 25-34 minutes Medications reviewed and adjusted accordingly: Yes Anticipated discharge: Home Within: within 48 hours - Inpatient Certification Based on my medical assessment, after consideration of the patient's comorbidities, presenting symptoms, or acuity I expect that the services needed warrant INPATIENT care.: No I certify that my determination is in accordance with my understanding of Medicare's requirements for reasonable and necessary INPATIENT services [42 CFR 412.3e].: No
[2019-03-31] MEDS: MORPHINE SULFATE 10 MG/ML INJ IV PRN ×4 (01:09→22:33)
[2019-03-31] MEDS: HEPARIN SOD (PORCINE) 5,000 UNIT/ML 1 ML VIAL SUBCUT SCH ×4 (01:10→22:34)
[2019-03-31] MEDS: FAMOTIDINE 20 MG TABLET PO SCH ×3 (01:10→22:34)
[2019-03-31 02:55] LABS: CHOLESTEROL 154.57 mg/dL (0-200); CREATINE KINASE 78 U/L (30-135); TRIGLYCERIDES 71 mg/dL (<150)
[2019-03-31 03:06] LABS: DIRECT LDL 87 mg/dL (<100)
[2019-03-31 03:08] LABS: CREATINE KINASE MB 1.09 ng/mL (<4.55)
[2019-03-31 03:09] LABS: TROPONIN I < 0.012 ng/mL
[2019-03-31 09:15] LABS: CREATINE KINASE MB 1.03 ng/mL (<4.55)
[2019-03-31 09:18] LABS: TROPONIN I < 0.012 ng/mL
[2019-03-31] MEDS: DOCUSATE SODIUM 100 MG CAPSULE PO SCH ×2 (09:58→18:03)
[2019-03-31] MEDS ORDERED: REGADENOSON INJ 0.4 MG/5 ML DISP.SYRIN IV ONE (11:26)
--- NOTE | 2019-03-31 12:02 | PDOC PROGRESS REPORT ---
Subjective Progress Note for:: 03/31/19 Subjective:: 03/31/2019-numbness and tingling in her right advent going down to her right jaw Reason For Visit: RIGHT JAW PAIN Physical Exam Vital Signs: Temp Pulse Resp BP Pulse Ox 97.2 F 65 16 118/71 96 03/31/19 07:30 03/31/19 07:30 03/31/19 07:30 03/31/19 07:30 03/31/19 07:30 Intake & Output 03/30/19 03/31/19 04/01/19 06:59 06:59 06:59 Intake Total 0 Balance 0 Weight 108.4 kg General appearance: PRESENT: no acute distress, well-developed, well-nourished Neck exam: ABSENT: carotid bruit, JVD, lymphadenopathy, thyromegaly Respiratory exam: PRESENT: clear to auscultation daryn. ABSENT: rales, rhonchi, wheezes Cardiovascular exam: PRESENT: RRR. ABSENT: diastolic murmur, rubs, systolic murmur Pulses: PRESENT: normal dorsalis pedis pul Vascular exam: PRESENT: normal capillary refill GI/Abdominal exam: PRESENT: normal bowel sounds, soft. ABSENT: distended, guarding, mass, organolmegaly, rebound, tenderness Extremities exam: PRESENT: full ROM. ABSENT: calf tenderness, clubbing, pedal edema Neurological exam: PRESENT: alert, awake, oriented to person, oriented to place, oriented to time, oriented to situation, CN II-XII grossly intact. ABSENT: motor sensory deficit Psychiatric exam: PRESENT: appropriate affect, normal mood. ABSENT: homicidal ideation, suicidal ideation Skin exam: PRESENT: dry, intact, warm, other - Left mastectomy. ABSENT: cya nosis, rash Results Laboratory Results: 03/30/19 17:01 03/30/19 16:51 03/30/19 03/30/19 03/31/19 16:51 17:01 02:29 WBC 8.3 RBC 5.05 Hgb 15.1 Hct 44.0 MCV 87 MCH 29.8 MCHC 34.2 RDW 12.5 Plt Count 264 Seg Neutrophils % 67.8 Sodium 139.5 Potassium 4.1 Chloride 105 Carbon Dioxide 22 Anion Gap 13 BUN 14 Creatinine 0.80 Est GFR ( Amer) > 60 Glucose 101 Calcium 10.2 Total Bilirubin 0.6 AST 22 Alkaline Phosphatase 94 Total Protein 8.3 H Albumin 4.7 Triglycerides 71 Cholesterol 154.57 LDL Cholesterol Direct 87 VLDL Cholesterol 14.0 HDL Cholesterol 56 TSH 03/31/19 02:29 WBC RBC Hgb Hct MCV MCH MCHC RDW Plt Count Seg Neutrophils % Sodium Potassium Chloride Carbon Dioxide Anion Gap BUN Creatinine Est GFR ( Amer) Glucose Calcium Total Bilirubin AST Alkaline Phosphatase Total Protein Albumin Triglycerides Cholesterol LDL Cholesterol Direct VLDL Cholesterol HDL Cholesterol TSH 2.03 03/30/19 03/30/19 03/30/19 16:51 20:15 20:15 Creatine Kinase 73 CK-MB (CK-2) 1.20 Troponin I < 0.012 < 0.012 03/31/19 03/31/19 03/31/19 02:29 02:29 08:17 Creatine Kinase 78 72 CK-MB (CK-2) 1.09 Troponin I < 0.012 03/31/19 08:17 Creatine Kinase CK-MB (CK-2) 1.03 Troponin I < 0.012 Assessment and Plan - Diagnosis (1) Jaw pain Is this a current diagnosis for this admission?: Yes Plan: 03/31/2019-sound suspiciously like Eduardo's palsy. Will start patient on Solu- Medrol 60 mg IV every 8. If no improvement by tomorrow we will get an MRI as patient has a history of a right temporal lobectomy. (2) Panic attacks Is this a current diagnosis for this admission?: Yes Plan: -stable continue to follow - Plan Summary Summary: Patient is admitted to observation status on telemetry unit. Her cardiac enzymes will be repeated on a serial basis for evaluation of her right jaw pain. Her panic disorder will be treated with clonazepam 0.5 mg p.o. twice daily. Her blood pressure be monitored closely and treated with hydralazine 20 mg IV every 4 hours and/or metoprolol 5 mg IV every 4 hours as needed to maintain a systolic blood pressure less than 160 and/or a diastolic blood pressure less than 100. A quarter seamer consultation will be obtained to assist the patient in weight loss. Her pain will be treated with morphine sulfate 2 to 4 mg IV every 2 hours on an as-needed basis using a sliding scale. A cardiac stress test will be scheduled for the morning if her cardiac enzymes remain negative for acute ca rdiac injury or ischemia. She will receive the usual supportive and symptomatic care throughout her hospital course. She will receive ileostomy care as needed. She will also have routine screenings of her TSH and lipid profile. - Time Time Spent with patient: 15-24 minutes
[2019-03-31] MEDS: METHYLPREDNISOLONE INJ 125 MG/2 ML SDV IV SCH ×2 (14:50→22:33)
[2019-04-01] MEDS: MORPHINE SULFATE 10 MG/ML INJ IV PRN (03:00)
[2019-04-01] MEDS: METHYLPREDNISOLONE INJ 125 MG/2 ML SDV IV SCH (06:32)
[2019-04-01] MEDS: HEPARIN SOD (PORCINE) 5,000 UNIT/ML 1 ML VIAL SUBCUT SCH (06:32)
[2019-04-01] MEDS: DOCUSATE SODIUM 100 MG CAPSULE PO SCH (09:29)
--- NOTE | 2019-04-01 09:34 | PDOC DISCHARGE SUMMARY ---
Impression - Admit/DC Date/PCP Admission Date/Primary Care Provider: 03/30/19 20:05 ARMAND HANSEN MD Discharge Date: 04/01/19 - Discharge Diagnosis (1) Jaw pain Is this a current diagnosis for this admission?: Yes (2) Panic attacks Is this a current diagnosis for this admission?: Yes (3) Eduardo's palsy Is this a current diagnosis for this admission?: Yes (4) Elevated blood pressure reading without diagnosis of hypertension Is this a current diagnosis for this admission?: Yes (5) History of brain cancer in adulthood Is this a current diagnosis for this admission?: Yes (6) History of left breast cancer Is this a current diagnosis for this admission?: Yes (7) Ileostomy present Is this a current diagnosis for this admission?: Yes (8) Obesity (BMI 35.0-39.9 without comorbidity) Is this a current diagnosis for this admission?: Yes - Assessment Summary: Patient is admitted to observation status on telemetry unit. Her cardiac enzymes will be repeated on a serial basis for evaluation of her right jaw pain. Her panic disorder will be treated with clonazepam 0.5 mg p.o. twice daily. Her blood pressure be monitored closely and treated with hydralazine 20 mg IV every 4 hours and/or metoprolol 5 mg IV every 4 hours as needed to maintain a systolic blood pressure less than 160 and/or a diastolic blood pressure less than 100. A outside salesperson consultation will be obtained to assist the patient in weight loss. Her pain will be treated with morphine sulfate 2 to 4 mg IV every 2 hours on an as-needed basis using a sliding scale. A cardiac stress test will be scheduled for the morning if her cardiac enzymes remain negative for acute cardiac injury or ischemia. She will receive the usual supportive and symptomatic care throughout her hospital course. She will receive ileostomy care as needed. She will also have routine screenings of her TSH and lipid profile. - Additional Information Resuscitation Status: Full Code Discharge Diet: As Tolerated Discharge Activity: Activity As Tolerated Referrals: ARMAND HANSEN MD [Primary Care Provider] - Follow up as needed Prescriptions: Clonazepam [Klonopin 1 mg Tablet] 0.5 mg PO Q12HP PRN #15 tablet PRN Reason: Prednisone 10 mg PO DAILY #21 tablet Home Medications: Diphenhydramine HCl [Benadryl] 50 mg PO HSP PRN 11/13/19 Melatonin 10 mg PO HSP PRN 03/30/19 Sertraline HCl [Zoloft] 100 mg PO DAILY 03/30/19 Clonazepam [Klonopin 1 mg Tablet] 0.5 mg PO Q12HP PRN #15 tablet 04/01/19 Prednisone 10 mg PO DAILY #21 tablet 04/01/19 History of Present Illiness History of Present Illness: MELVIN CESAR is a 63 year old female who presented to the ER with right jaw pain and discomfort Hospital Course Hospital Course: Patient with previous history of breast cancer, brain cancer, 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 This turned out to be a right jew radiating to her left right jaw discomfort seemed more like Eduardo's palsy. IV steroids have stopped the inflammation at this time. Patient does complain of a clogged right ear. Patient underwent stress test which was negative. At this time patient is improved patient return home she will follow-up with primary care in 1 week. Patient does have anxiety and I have given her clonazepam 0.5 mg p.o. twice daily #15. I have also given patient a prednisone Dosepak to continue therapy for this Eduardo's palsy Physical Exam Vital Signs: Temp Pulse Resp BP Pulse Ox 98.5 F 86 17 134/64 H 97 04/01/19 08:15 04/01/19 08:15 04/01/19 08:15 04/01/19 08:15 04/01/19 08:15 Intake & Output 03/31/19 04/01/19 04/02/19 06:59 06:59 06:59 Intake Total 0 984 Output Total 800 Balance 0 184 Weight 108.4 kg 110.8 kg General appearance: PRESENT: no acute distress, well-developed, well-nourished Neck exam: ABSENT: carotid bruit, JVD, lymphadenopathy, thyromegaly Respiratory exam: PRESENT: clear to auscultation daryn. ABSENT: rales, rhonchi, wheezes Cardiovascular exam: PRESENT: RRR. ABSENT: diastolic murmur, rubs, systolic murmur Pulses: PRESENT: normal dorsalis pedis pul Vascular exam: PRESENT: normal capillary refill GI/Abdominal exam: PRESENT: normal bowel sounds, soft. ABSENT: distended, guarding, mass, organolmegaly, rebound, tenderness Extremities exam: PRESENT: full ROM. ABSENT: calf tenderness, clubbing, pedal edema Neurological exam: PRESENT: alert, awake, oriented to person, oriented to place, oriented to time, oriented to situation, CN II-XII grossly intact. ABSENT: motor sensory deficit Psychiatric exam: PRESENT: appropriate affect, normal mood. ABSENT: homicidal ideation, suicidal ideation Skin exam: PRESENT: other - Left mastectomy Results Laboratory Results: WBC 8.3 10^3/uL (4.0-10.5) 03/30/19 17: RBC 5.05 10^6/uL (3.72-5.28) 03/30/19 17:01 Hgb 15.1 g/dL (12.0-15.5) 03/30/19 17: Hct 44.0 % (36.0-47.0) 03/30/19 17: MCV 87 fl (80-97) 03/30/19 17: MCH 29.8 pg (27.0-33.4) 03/30/19 17: MCHC 34.2 g/dL (32.0-36.0) 03/30/19 17: RDW 12.5 % (11.5-14.0) 03/30/19 17:01 Plt Count 264 10^3/uL (150-450) 03/30/19 17:01 Lymph % (Auto) 21.5 % (13-45) 03/30/19 17: [place] % (Auto) 9.0 % (3-13) 03/30/19 17: Eos % (Auto) 0.4 % (0-6) 03/30/19 17: Baso % (Auto) 1.3 % (0-2) 03/30/19 17:01 Absolute Neuts (auto) 5.6 10^3/uL (1.7-8.2) 03/30/19 17: Absolute Lymphs (auto) 1.8 10^3/uL (0.5-4.7) 03/30/19 17: Absolute Monos (auto) 0.7 10^3/uL (0.1-1.4) 03/30/19 17: Absolute Eos (auto) 0.0 10^3/uL (0.0-0.6) 03/30/19 17:01 Absolute Basos (auto) 0.1 10^3/uL (0.0-0.2) 03/30/19 17:01 Seg Neutrophils % 67.8 % (42-78) 03/30/19 17:01 Sodium 139.5 mmol/L (137-145) 03/30/19 16:51 Potassium 4.1 mmol/L (3.6-5.0) 03/30/19 16:51 Chloride 105 mmol/L (98-107) 03/30/19 16:51 Carbon Dioxide 22 mmol/L (22-30) 03/30/19 16:51 Anion Gap 13 (5-19) 03/30/19 16:51 BUN 14 mg/dL (7-20) 03/30/19 16:51 Creatinine 0.80 mg/dL (0.52-1.25) 03/30/19 16:51 Est GFR ( Amer) > 60 (>60) 03/30/19 16:51 Est GFR (MDRD) Non-Af > 60 (>60) 03/30/19 16:51 Glucose 101 mg/dL (75-110) 03/30/19 16:51 Calcium 10.2 mg/dL (8.4-10.2) 03/30/19 16:51 Total Bilirubin 0.6 mg/dL (0.2-1.3) 03/30/19 16:51 Direct Bilirubin 0.1 mg/dL (0.0-0.4) 03/30/19 16:51 Neonat Total Bilirubin Not Reportable 03/30/19 16:51 Neonat Direct Bilirubin Not Reportable 03/30/19 16:51 Neonat Indirect Bili Not Reportable 03/30/19 16:51 AST 22 U/L (14-36) 03/30/19 16:51 ALT 14 U/L (<35) 03/30/19 16:51 Alkaline Phosphatase 94 U/L (38-126) 03/30/19 16:51 Creatine Kinase 72 U/L (30-135) 03/31/19 08:17 CK-MB (CK-2) 1.03 ng/mL (<4.55) 03/31/19 08:17 Troponin I < 0.012 ng/mL 03/31/19 08:17 Total Protein 8.3 g/dL (6.3-8.2) H 03/30/19 16:51 Albumin 4.7 g/dL (3.5-5.0) 03/30/19 16:51 Triglycerides 71 mg/dL (<150) 03/31/19 02:29 Cholesterol 154.57 mg/dL (0-200) 03/31/19 02:29 LDL Cholesterol Direct 87 mg/dL (<100) 03/31/19 02:29 VLDL Cholesterol 14.0 mg/dL (10-31) 03/31/19 02:29 HDL Cholesterol 56 mg/dL (>40) 03/31/19 02:29 TSH 2.03 uIU/mL (0.47-4.68) 03/31/19 02:29 03/30/19 03/30/19 03/31/19 16:51 20:15 02:29 CK-MB (CK-2) 1.20 1.09 Troponin I < 0.012 < 0.012 < 0.012 03/31/19 08:17 CK-MB (CK-2) 1.03 Troponin I < 0.012 Plan Time Spent: Greater than 30 Minutes Stroke Is this a Stroke Patient?: No Acute Heart Failure - Is this a Heart Failure Patient?: No
[2019-04-01] MEDS: FAMOTIDINE 20 MG TABLET PO SCH (10:01)
[2019-04-01 11:38] VITALS: BP 130/79
--- NOTE | 2019-04-03 22:57 | DRAGON STRESS TEST REPORT ---
Intravenous Lexiscan Cardiolite stress test using single photon emmision computerized tomography. Date of procedure: 03/31/2019.Ordering Provider: Dr. Christian Joel.Patient's status: Out Patient. Indication: Chest pain, jaw pain, and dyspnea on exertion.. Coronary risk factors: Age, hypertension, and family history of CAD. Resting EKG: Sinus Rhythm. Within normal limits. Stress EKG: No changes of ischemia. The patient had no chest pain or discomfort and there were no arrhythmias being seen. Reason for termination: Protocol. Conclusions: Normal EKG and hemodynamic response to IV Lexiscan. Nuclear data: At rest the patient was given 14.87 millicuries of technetium 99m sestamibi injected intravenously. As per protocol rest non gated SPECT images were obtained. Subsequently the patient was given intravenous Lexiscan at a dose of 0.4 mg in 5 mL intravenously, followed by flush with normal saline. Subsequently the stress dose of 45.6 millicuries of technetium 99m sestamibi was injected intravenously. As per protocol stress gated images were obtained. Nuclear interpretation: Review of images showed that all segments of the myocardium had normal perfusion at rest, and normal perfusion post stress with IV Lexiscan. All segments of the myocardium had normal motion, contraction, and thickening by gated study. T. I D. ratio was normal at 1.04. There is no transient ischemic dilatation of the left ventricle. Computer read rest, and stress left ventricular ejection fraction were 64 %, and 64 %, respectively. Conclusion: 1. There is no scintigraphic evidence of Lexiscan induced myocardial ischemia. 2. There is no scintigraphic evidence of myocardial infarction/scar. Recommendations: Aggressive risk factor modification, and treating the underlying co- morbidities. MTDD
== END 2019-04-01 14:00 | disposition home or self-care (01) ==
LOC: ER 16:24 → EH 20:05 → 4S 03-31 00:36
PROVIDERS: ADMIT Emergency Medicine; ATTEND Emergency Medicine
DX: R68.84 Jaw pain (principal); F41.0 Panic disorder [episodic paroxysmal anxiety]; G51.0 Bell's palsy; R03.0 Elevated blood-pressure reading, without diagnosis of hypertension; E66.9 Obesity, unspecified; R07.89 Other chest pain; H93.8X1 Other specified disorders of right ear; R40.2412 Glasgow coma scale score 13-15, at arrival to emergency department; R29.700 NIHSS score 0; Z85.841 Personal history of malignant neoplasm of brain; Z85.3 Personal history of malignant neoplasm of breast; Z93.2 Ileostomy status; Z68.39 Body mass index [BMI] 39.0-39.9, adult; Z90.12 Acquired absence of left breast and nipple; Z85.038 Personal history of other malignant neoplasm of large intestine; Z90.49 Acquired absence of other specified parts of digestive tract; Z90.89 Acquired absence of other organs; Z86.69 Personal history of other diseases of the nervous system and sense organs; Z60.2 Problems related to living alone; Z79.899 Other long term (current) drug therapy; Z85.42 Personal history of malignant neoplasm of other parts of uterus; Z90.710 Acquired absence of both cervix and uterus; Z98.890 Other specified postprocedural states
CPT/HCPCS: 93005; 99284; 36415 ×2; 82553 ×2; 82550 ×2; 84443; 85025; 80053; 84484 ×2; 80061; 93017; 78452; 93010; G0378 ×3; A9500; J2785; J1644 ×2; J2930 ×2; J2270 ×2; J3490 ×2; Q9969

== ENCOUNTER 2019-12-13 10:47 | Day surgery (SDC) | payer OTHER ==
[~2019-12-13 10:47] MED LIST: BUPIVACAINE HCL 0.75% INJ/PF (7.5 MG/1 ML) 10 ML SDV OD PRN; CHONDR SU A NA/HYALUR INTRAOC KIT (SURGICARE) ONE; EPINEPHRINE INJ/PF 1 MG/1 ML AMPULE ONE; FENTANYL CITRATE INJ/PF 100 MCG/2 ML AMPUL ONE; KETOROLAC TROMETHAMINE 0.45% 4 DROP/0.4 ML DROPERETTE OD PRN; LIDOCAINE 4% INJ/PF (40 MG/ML) 5 ML AMPUL OD PRN; MIDAZOLAM 2 MG/2 ML INJ ONE; ONDANSETRON HCL INJ/PF 4 MG/2 ML SDV ONE
[2019-12-13] MEDS: TETRACAINE HCL 0.5% OPH SOLN 4 ML OD PRN ×4 (11:05→11:35)
[2019-12-13] MEDS: CYCLOPENTOLATE 0.2%/PHENYLEPHRINE 1% OPH SOLN 2 ML OD PRN ×3 (11:05→11:30)
[2019-12-13] MEDS: TROPICAMIDE 1% OPH SOLN 15 ML OD PRN ×3 (11:05→11:30)
[2019-12-13] MEDS: BESIFLOXACIN HCL 0.6% OPH SUSP 5 ML BOTTLE OD PRN ×4 (11:05→12:06)
[2019-12-13] MEDS: LIDOCAINE 1% INJ-PF (10 MG/ML) 30 ML SDV ONE ×2 (11:47→11:48)
[2019-12-13] MEDS: DORZOLAMIDE HCL 2%/TIMOLOL MALEAT 0.5% OPH SOLN 10 ML OD PRN ×2 (12:06)
--- NOTE | 2019-12-13 12:22 | Operative Report ---
Operative Report-[facility] Operative Report: DATE OF SURGERY: 12/13/2019 PREOPERATIVE DIAGNOSIS: CATARACT, RIGHT EYE. POSTOPERATIVE DIAGNOSIS: CATARACT,RIGHT EYE. PROCEDURE PERFORMED: PHACOEMULSIFICATION WITH TORIC POSTERIOR CHAMBER INTRAOCULAR LENS, RIGHT EYE. Intraocular Lens Model : Z CT 225 30 0.5 Total Phaco Time: 12.80 CDE SURGEON: YESSICA REGALADO MD ANESTHESIA: TOPICAL WITH MAC. INDICATIONS FOR SURGERY: Difficulty with night driving PROCEDURE: The patient was brought to the Operating Room and placed in a seated position. a lid speculum was placed in the eye. the 0.180, and 270 degree axis of the cornea was marked with a toric marker. the patien was place in a reclining position. Following tetracaine drops, topical anesthesia was administered. This consisted of instrument wipe pledgets soaked in a solution of 4% Xylocaine mixed with 0.75% Marcaine in a 1:2 ratio. A 2 x 1 cm pledget was placed in the superior fornix. A 1 x 1 cm pledget was placed in the inferior fornix. The eye was patched shut for 5 minutes. The patch was removed. The eye was sterilely prepped and draped in the usual manner. Lid speculum was placed in the eye. The pledgets were removed. 4-0 black silk sutures were placed around the superior and the inferior rectus muscles to be used as traction. A conjunctival peritomy was made at the 10 o'clock position. Hemostasis was obtained with bipolar cautery. A posterior limbal groove was created using a crescent knife and dissected anteriorly towards the cornea. A sharp point blade was used to create a paracentesis site at the 2 o'clock position. 0.2 cc non preserved Lidocaine was injected into the anterior chamber. A 2.4 mm keratome was used to enter the anterior chamber through the groove. Viscoelastic was injected into the anteriorchamber. An anterior capsulotomy was performed using Utrata forceps in acapsulorrhexis fashion. Hydrodissection and hydrodelineation were performed. Phacoemulsification was performed in [id number] technique. Following this, the I/A unit was used to remove residual cortex. Viscoelastic was injected into the capsular bag. The Intraocular lens was placed in the capsular bag. The 88 degree axis of the eye was marked using a toric marker and the previously marked sites as reference. The lens was centered at this axis. The I/A unit was used to remove residual viscoelastic. The wound was seen to be watertight under high and low pressure, and no sutures were placed. The intraocular lens was well centered. The pressure was adjusted in the eye to normal pressure. The 4-0 black silk sutures and lid speculum were removed. The eye was shielded after Besivance and Cosopt drops were placed. The patient tolerated the procedure well and was sent to the Recovery Room in good condition.
== END 2019-12-13 12:46 | disposition home or self-care (01) ==
LOC: SC 10:47
PROVIDERS: ATTEND Ophthalmology
DX: H25.813 Combined forms of age-related cataract, bilateral (principal); H53.453 Other localized visual field defect, bilateral; H04.123 Dry eye syndrome of bilateral lacrimal glands; H52.03 Hypermetropia, bilateral; I10 Essential (primary) hypertension; Z88.0 Allergy status to penicillin; G40.909 Epilepsy, unspecified, not intractable, without status epilepticus; E66.9 Obesity, unspecified; Z85.3 Personal history of malignant neoplasm of breast; Z85.841 Personal history of malignant neoplasm of brain
CPT/HCPCS: 66984; V2787; J2250; J3490 ×5; J0171; J3010; J2405; 142

== ENCOUNTER 2020-01-03 10:39 | Day surgery (SDC) | payer OTHER ==
[~2020-01-03 10:39] MED LIST changes: -BUPIVACAINE HCL 0.75% INJ/PF (7.5 MG/1 ML) 10 ML SDV OD PRN; +BUPIVACAINE HCL 0.75% INJ/PF (7.5 MG/1 ML) 10 ML SDV OS PRN; -FENTANYL CITRATE INJ/PF 100 MCG/2 ML AMPUL ONE; -KETOROLAC TROMETHAMINE 0.45% 4 DROP/0.4 ML DROPERETTE OD PRN; +KETOROLAC TROMETHAMINE 0.45% 4 DROP/0.4 ML DROPERETTE OS PRN; +LIDOCAINE 1% INJ-PF (10 MG/ML) 30 ML SDV ONE; -LIDOCAINE 4% INJ/PF (40 MG/ML) 5 ML AMPUL OD PRN; +LIDOCAINE 4% INJ/PF (40 MG/ML) 5 ML AMPUL OS PRN; -MIDAZOLAM 2 MG/2 ML INJ ONE; -ONDANSETRON HCL INJ/PF 4 MG/2 ML SDV ONE
[2020-01-03] MEDS: TROPICAMIDE 1% OPH SOLN 15 ML OS PRN ×3 (11:09→11:29)
[2020-01-03] MEDS: BESIFLOXACIN HCL 0.6% OPH SUSP 5 ML BOTTLE OS PRN ×4 (11:09→12:25)
[2020-01-03] MEDS: CYCLOPENTOLATE 0.2%/PHENYLEPHRINE 1% OPH SOLN 2 ML OS PRN ×3 (11:09→11:29)
[2020-01-03] MEDS: TETRACAINE HCL 0.5% OPH SOLN 4 ML OS PRN ×2 (11:10→11:29)
[2020-01-03] MEDS ORDERED: MIDAZOLAM 2 MG/2 ML INJ ONE (11:55)
[2020-01-03] MEDS ORDERED: FENTANYL CITRATE INJ/PF 100 MCG/2 ML AMPUL ONE (11:56)
[2020-01-03] MEDS: DORZOLAMIDE HCL 2%/TIMOLOL MALEAT 0.5% OPH SOLN 10 ML OS PRN ×2 (12:25)
--- NOTE | 2020-01-03 15:53 | Operative Report ---
Operative Report-[facility] Operative Report: DATE OF SURGERY: 03/06/2020 PREOPERATIVE DIAGNOSIS: CATARACT, LEFT EYE. POSTOPERATIVE DIAGNOSIS: CATARACT, LEFT EYE. PROCEDURE PERFORMED: PHACOEMULSIFICATION WITH TORIC POSTERIOR CHAMBER INTRAOCULAR LENS, LEFT EYE. Intraocular Lens Model : ZCT 225 31.0 Total Phaco Time: 45 seconds SURGEON: YESSICA REGALADO MD ANESTHESIA: TOPICAL WITH MAC. INDICATIONS FOR SURGERY: Difficulty with night driving PROCEDURE: The patient was brought to the Operating Room and placed in a seated position. a lid speculum was placed in the eye. the 0.180, and 270 degree axis of the cornea was marked with a toric marker. the patien was place in a reclining position. Following tetracaine drops, topical anesthesia was administered. This consisted of instrument wipe pledgets soaked in a solution of 4% Xylocaine mixed with 0.75% Marcaine in a 1:2 ratio. A 2 x 1 cm pledget was placed in the superior fornix. A 1 x 1 cm pledget was placed in the inferior fornix. The eye was patched shut for 5 minutes. The patch was removed. The eye was sterilely prepped and draped in the usual manner. Lid speculum was placed in the eye. The pledgets were removed. 4-0 black silk sutures were placed around the superior and the inferior rectus muscles to be used as traction. A conjunctival peritomy was made at the 10 o'clock position. Hemostasis was obtained with bipolar cautery. A posterior limbal groove was created using a crescent knife and dissected anteriorly towards the cornea. A sharp point blade was used to create a para centesis site at the 2 o'clock position. 0.2 cc non preserved Lidocaine was injected into the anterior chamber. A 2.4 mm keratome was used to enter the anterior chamber through the groove. Viscoelastic was injected into the anteriorchamber. An anterior capsulotomy was performed using Utrata forceps in acapsulorrhexis fashion. Hydrodissection and hydrodelineation were performed. Phacoemulsification was performed in [id number] technique. Following this, the I/A unit was used to remove residual cortex. Viscoelastic was injected into the capsular bag. The Intraocular lens was placed in the capsular bag. The 90 degree axis of the eye was marked using a toric marker and the previously marked sites as reference. The lens was centered at this axis. The I/A unit was used to remove residual viscoelastic. The wound was seen to be watertight under high and low pressure, and no sutures were placed. The intraocular lens was well centered. The pressure was adjusted in the eye to normal pressure. The 4-0 black silk sutures and lid speculum were removed. The eye was shielded after Besivance and Cosopt drops were placed. The patient tolerated the procedure well and was sent to the Recovery Room in good condition.
== END 2020-01-03 13:02 ==
LOC: SC 10:39
PROVIDERS: ATTEND Ophthalmology
DX: H25.812 Combined forms of age-related cataract, left eye (principal); Z96.1 Presence of intraocular lens; I10 Essential (primary) hypertension; G51.0 Bell's palsy; G40.909 Epilepsy, unspecified, not intractable, without status epilepticus; Z85.3 Personal history of malignant neoplasm of breast; Z85.038 Personal history of other malignant neoplasm of large intestine; Z85.42 Personal history of malignant neoplasm of other parts of uterus; Z85.841 Personal history of malignant neoplasm of brain
CPT/HCPCS: 66984; V2787; J2250; J3490 ×5; J0171; J3010; 142

== ENCOUNTER 2020-01-17 11:26 | Day surgery (SDC) | payer OTHER ==
[~2020-01-17 11:26] MED LIST changes: +BUPIVACAINE HCL 0.75% INJ/PF (7.5 MG/1 ML) 10 ML SDV OD PRN; -BUPIVACAINE HCL 0.75% INJ/PF (7.5 MG/1 ML) 10 ML SDV OS PRN; +KETOROLAC TROMETHAMINE 0.45% 4 DROP/0.4 ML DROPERETTE OD PRN; -KETOROLAC TROMETHAMINE 0.45% 4 DROP/0.4 ML DROPERETTE OS PRN; +LIDOCAINE 4% INJ/PF (40 MG/ML) 5 ML AMPUL OD PRN; -LIDOCAINE 4% INJ/PF (40 MG/ML) 5 ML AMPUL OS PRN
[2020-01-17] MEDS: CYCLOPENTOLATE 0.2%/PHENYLEPHRINE 1% OPH SOLN 2 ML OD PRN ×3 (12:10→12:30)
[2020-01-17] MEDS: BESIFLOXACIN HCL 0.6% OPH SUSP 5 ML BOTTLE OD PRN ×4 (12:10→13:25)
[2020-01-17] MEDS: TROPICAMIDE 1% OPH SOLN 15 ML OD PRN ×3 (12:10→12:30)
[2020-01-17] MEDS: TETRACAINE HCL 0.5% OPH SOLN 4 ML OD PRN ×3 (12:10→12:56)
[2020-01-17] MEDS ORDERED: LIDOCAINE 1% INJ-PF (10 MG/ML) 30 ML SDV ONE (12:32)
[2020-01-17] MEDS ORDERED: MIDAZOLAM 2 MG/2 ML INJ ONE (13:04)
[2020-01-17] MEDS ORDERED: FENTANYL CITRATE INJ/PF 100 MCG/2 ML AMPUL ONE (13:05)
[2020-01-17] MEDS: DORZOLAMIDE HCL 2%/TIMOLOL MALEAT 0.5% OPH SOLN 10 ML OD PRN ×2 (13:25)
[2020-01-17] MEDS: PREDNISOLONE ACETATE 1% OPH SUSP 5 ML OD PRN ×2 (13:25)
--- NOTE | 2020-01-17 14:59 | Operative Report ---
Operative Report-[facility] Operative Report: DATE OF SURGERY: 01/17/2020 PREOPERATIVE DIAGNOSIS: Displacement of intraocular lens right eye POSTOPERATIVE DIAGNOSIS: Displacement of intraocular lens right eye PROCEDURE PERFORMED: Realignment of TORIC POSTERIOR CHAMBER INTRAOCULAR LENS, RIGHT EYE. SURGEON: YESSICA REGALADO MD ANESTHESIA: TOPICAL WITH MAC. INDICATIONS FOR SURGERY: Rotation of toric intraocular lens postoperatively resulting in poor uncorrected vision PROCEDURE: The patient was brought to the Operating Room and placed in a seated position. a lid speculum was placed in the eye. the 0.180, and 270 degree axis of the cornea was marked with a toric marker. the patient was place in a reclining position. Following tetracaine drops, topical anesthesia was administered. This consisted of instrument wipe pledgets soaked in a solution of 4% Xylocaine mixed with 0.75% Marcaine in a 1:2 ratio. A 2 x 1 cm pledget was placed in the superior fornix. A 1 x 1 cm pledget was placed in the inferior fornix. The eye was patched shut for 5 minutes. The patch was removed. The eye was sterilely prepped and draped in the usual manner. Lid speculum was placed in the eye. The pledgets were removed. 4-0 black silk sutures were placed around the superior and the inferior rectus muscles to be used as traction. The previous superior cataract incision was reopened using a cannula as well as the side-port incision at 2:00. A sharp point blade was used to create an additional paracentesis site at the 7 o'clock position. 0.2 cc non preserved Lidocaine was injected into the anterior chamber. Viscoelastic was injected into the anteriorchamber around the lens haptics to mobilize them. The intraocular lens axis was located at 115 degrees and was calculated to be moved to the 85 degree axis preoperatively. This axis was marked using the previously marked sites as well as the current lens axis. Using a Sinskey hook and viscoelastic the lens was gently rotated to the 85 degree axis and centered nicely the I/A unit was used to remove residual viscoelastic. the wound was seen to be watertight under high and low pressure, and no sutures were placed. The intraocular lens was well centered. The pressure was adjusted in the eye to normal pressure. The 4-0 black silk sutures and lid speculum were removed. The eye was shielded after Besivance and Cosopt drops were placed. The patient tolerated the procedure well and was sent to the Recovery Room in good condition.
== END 2020-01-17 14:09 | disposition home or self-care (01) ==
LOC: SC 11:26
PROVIDERS: ATTEND Ophthalmology
DX: T85.22XA Displacement of intraocular lens, initial encounter (principal); Y83.8 Other surgical procedures as the cause of abnormal reaction of the patient, or of later complication, without mention of misadventure at the time of the procedure; I10 Essential (primary) hypertension; J45.990 Exercise induced bronchospasm; Z85.3 Personal history of malignant neoplasm of breast; Z85.841 Personal history of malignant neoplasm of brain
CPT/HCPCS: 66825; J2250; J3490 ×5; J0171; J3010; 142